=== PATIENT | male | born 1985 | race Caucasian/White ===

== ENCOUNTER 2017-09-12 13:04 | Emergency (ER) | payer OTHER ==
[2017-09-12] MEDS ORDERED: ELVI1TAB2 PO (13:20)
[2017-09-12] MEDS ORDERED: LAMO5TB.6 PO (13:20)
[2017-09-12] MEDS ORDERED: BUPR-124 PO (13:20)
--- NOTE | 2017-09-12 13:33 | ER Report ---
History and Physical Time Seen By MD: 13:18 Hx. of Stated Complaint: PATIENT WORKS AT [employer]. HE WAS EUTHANIZING PIGS TODAY AND GOT KICKED IN THE LEFT HAND AND THINKS THAT HE BROKE IT HPI/ROS Chief Concern: hurt hand History of Present Illnesses: 32-year-old male presents to the emergency department after hurting his left hand. The event occurred within the hour and his boss told him to come into the ER to be evaluated. The patient reports that he was euthanizing pigs and one pig kicked his hand slamming it into a metal fence. Reports hand pain, point tenderness of the hand. Pain is a 3/10 at rest. No treatment tried no associated symptoms. Constitutional: Denies recent illness, malaise, chills, fever. Cardiovascular: Denies chest pain, palpitations, or diaphoresis. Respiratory: Denies cough, shortness of breath, or wheezing. Musculoskeletal: Reports left hand pain. Denies right hand pain, reports full ROM of extremities. Home Meds Reported Medications Bupropion Hcl (BUPROPION XL) 150 Mg Tab.er.24h, 150 MG PO QDAY, #10 TAB 09/12/17 Lamotrigine (LAMOTRIGINE) 5 Mg Tb.chw.dsp, 5 MG PO 09/12/17 Elvitegr/Cobicist/Emtric/Tenof (STRIBILD TABLET) 1 Each Tablet, 1 EACH PO QDAY 09/12/17 Past Medical/Surgical History Past Medical history: bipolar, HIV Denies significant past medical history. Hx Substance Use Disorder: No Hx Alcohol Use: No Constitutional Vital Sign - Last 24 Hours 09/12/17 09/12/17 09/12/17 09/12/17 13:09 13:15 13:15 13:30 Temp 99.1 Pulse 85 Resp 20 B/P (MAP) 132/80 (97) 120/74 120/74 (89) 114/71 (85) Pulse Ox 92 O2 Delivery Room Air 09/12/17 09/12/17 09/12/17 09/12/17 13:34 13:45 14:00 14:04 Pulse 90 80 B/P (MAP) 114/79 (91) 122/69 (86) Pulse Ox 93 92 Physical Exam Physical Examination: Constitutional: 32-year-old male in no acute distress. HEENT: Normocephalic and atraumatic. Cardiovascular: 2+ radial pulses BL equal. Peripheral perfusion less than 3 seconds bilaterally. PMI - left midclavicular at the 5th ICS. Aortic, pulmonic , tricuspid, and mitral areas - clear S1/S2; no murmur, no S3, or S4. Respiratory: Respiratory Excursion BL equal and symmetrical; no presence of lag ; quiet, rhythmic and effortless. No retractions. BL clear and equal. Musculoskeletal: Active motion of all extremities. Left dorsal hand with hematoma and swelling. Full ROM of the digits bilaterally. Pain with palpation of the third and fourth metacarpales. Neurologic: Alert. Language clear. Adequate sensation of the hands bilaterally. Differential Diagnoses: fracture, sprain, contusion Medical Decision Making EKG/Imaging Imaging Exam type: HAND COMPLETE LEFT History: Left hand pain near first metacarpal and second metacarpal at base Comparison: None. Findings: There is no evidence of acute fracture dislocation or significant arthritic change involving the left hand no radiopaque soft tissue foreign body seen IMPRESSION: 1. No acute osteoarticular abnormality the left hand is seen Report Dictated By: Cristal Bowie MD at 09/12/2017 1:56 PM Report E-Signed By: Cristal Bowie MD at 09/12/2017 1:58 PM ED Course/Re-evaluation ED Course 32-year-old male presents to the emergency department after hurting his hand at work. History and physical examination obtained. Differential diagnoses considered and shared with the patient. X-ray of the left hand obtained. No acute finding identified. The patient has been sent home for self care and encouraged to rest, elevate, and ice the extremities. He has been further encouraged to obtain another x-ray if his pain in his hand does not improve within the week. He states understanding and has no further questions at this time. Decision to Disposition Date: Sep 12, 2017 Decision to Disposition Time: 14:06 Depart Departure Latest Vital Signs Vital Signs Date Time Temp Pulse Resp B/P (MAP) Pulse Ox O2 Delivery O2 Flow Rate FiO2 09/12/17 14:04 80 92 09/12/17 14:00 122/69 (86) 09/12/17 13:15 99.1 20 Room Air Impression: Primary Impression: Hand contusion Condition: Improved Disposition: HOME OR SELF-CARE Patient Instructions: Contusion in Adults (ED) Additional Instructions: Limit activity by pain. Ice the hand. Get plenty of rest. Follow up with your primary care in the next week if pain persists. Return to the ER if condition worsens. If pain persists I would encourage you to have a repeat x-ray. Take Tylenol or Ibuprofen as needed to help with pain. Problem Qualifiers Primary Impression: Hand contusion Encounter type: initial encounter Laterality: left Qualified Codes: S60.222A - Contusion of left hand, initial encounter DESHAUN DERAS Sep 12, 2017 13:33
[2017-09-12 14:00] VITALS: BP 122/69
--- NOTE | 2017-09-12 14:02 | RADIOLOGY IMAGING REPORT ---
FACILITY: [facility] - [place] PATIENT NAME: Severiano Martel : 1985 MR: [id number] V: [id number] EXAM DATE: ORDERING PHYSICIAN: DESHAUN DERAS TECHNOLOGIST: Location: [facility] Patient: Severiano Martel : 1985 Visit/Account:[id number] Date of Sevice: 09/12/2017 Exam type: HAND COMPLETE LEFT History: Left hand pain near first metacarpal and second metacarpal at base Comparison: None. Findings: There is no evidence of acute fracture dislocation or significant arthritic change involving the left hand no radiopaque soft tissue foreign body seen IMPRESSION: 1. No acute osteoarticular abnormality the left hand is seen Report Dictated By: Cristal Bowie MD at 09/12/2017 1:56 PM Report E-Signed By: Cristal Bowie MD at 09/12/2017 1:58 PM WSN:[email or web address]
== END 2017-09-12 14:16 | disposition home or self-care (01) ==
LOC: ER 13:12
DX: S60.222A Contusion of left hand, initial encounter (principal); W55.42XA Struck by pig, initial encounter; Y99.0 Civilian activity done for income or pay
CPT/HCPCS: 99283

== ENCOUNTER → 2018-08-12 | Outpatient (CLI) | payer OTHER ==
[~2018-08-12] MED LIST: BUPR-124 PO; ELVI1TAB2 PO; LAMO5TB.6 PO
--- NOTE | 2018-08-12 11:36 | RADIOLOGY IMAGING REPORT ---
FACILITY: [facility] [place] PATIENT NAME: Severiano Martel : 1985 MR: [id number] V: [id number] EXAM DATE: ORDERING PHYSICIAN: BENITEZ MAURO TECHNOLOGIST: Location: [facility] - [place] Patient: Severiano Martel : 1985 Visit/Account:[id number] Date of Sevice: 08/12/2018 MR SPINE LUMBAR W/O CON HISTORY: Low back pain, worsening left radiculopathy. ADDITIONAL HISTORY: None. TECHNIQUE: Multi-planar multi-sequence MRI lumbar without intravenous contrast. CONTRAST: None. COMPARISON: None. FINDINGS: Alignment: Normal. Marrow signal: Unremarkable. Disc signal: There is disc desiccation with decreased T2 signal at the L5-S1 disc. Remaining discs a re normal. Distal thoracic cord: Unremarkable. Conus: L1 Cauda equina: Unremarkable. Disc Spaces: Lower T spine: Negative. L1-2: The spinal canal and neural foramen are patent. L2-3: The spinal canal and neural foramen are patent. L3-4: The spinal canal and neural foramen are patent. L4-5: The spinal canal and neural foramen are patent. L5-S1: There is a focal left posterior paracentral disc protrusion, that measures 1.0 cm craniocaudad by 1.1 cm AP that causes severe left neural foramen stenosis. The right neural foramen is patent. Paravertebral soft tissues: Unremarkable. Visualized abdominal and pelvic structures: Unremarkable. IMPRESSION: 1. Focal left posterior paracentral disc protrusion L5-S1, that causes severe left neural foramen st enosis. 2. Remaining discs are normal. Report Dictated By: Angus Charles at 08/12/2018 11:26 AM Report E-Signed By: Angus Charles at 08/12/2018 11:30 AM WSN:[email or web address]
== END ==
LOC: MRI 09:49
PROVIDERS: ATTEND Internal Medicine Cardiovascular Disease
DX: M48.07 Spinal stenosis, lumbosacral region (principal)
CPT/HCPCS: 72148